=== PATIENT | male | born 1950 | race Caucasian/White ===

== ENCOUNTER 2016-09-01 08:38 | Emergency (ER) | payer BC ==
[~2016-09-01] VITALS: Ht 172.7 cm; Wt 70.3 kg
--- NOTE | 2016-09-01 08:38 | NUR ---
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
--- NOTE | 2016-09-01 08:48 | NUR ---
"CODE STROKE" called per .
--- NOTE | 2016-09-01 08:56 | NUR ---
CT scan is down. Patient is going to [facility] for CT scan, no TPA given at this time.
[2016-09-01] MEDS ORDERED: [UNRECOGNIZED DRUG - REMARK] (08:57)
[2016-09-01] MEDS ORDERED: HYDROCHLOROTHIAZIDE (08:57)
[2016-09-01] MEDS ORDERED: [UNRECOGNIZED DRUG - REMARK] (08:57)
[2016-09-01] MEDS ORDERED: [UNRECOGNIZED DRUG - REMARK] (08:57)
[2016-09-01] MEDS ORDERED: [UNRECOGNIZED DRUG - REMARK] (08:57)
[2016-09-01] MEDS ORDERED: [UNRECOGNIZED DRUG - REMARK] (08:57)
[2016-09-01] MEDS ORDERED: [UNRECOGNIZED DRUG - REMARK] (08:57)
[2016-09-01] MEDS ORDERED: [UNRECOGNIZED DRUG - REMARK] (08:57)
[2016-09-01] MEDS ORDERED: ASPI81TA31 PO (09:01)
== END 2016-09-01 09:09 | disposition short-term general hospital (02) ==
LOC: ER 08:38
DX: I63.9 Cerebral infarction, unspecified (principal); I10 Essential (primary) hypertension; E78.5 Hyperlipidemia, unspecified; E11.9 Type 2 diabetes mellitus without complications; Z79.82 Long term (current) use of aspirin
CPT/HCPCS: 82962; 99285; A4663